=== PATIENT | female | born 1975 | race Caucasian/White ===

== ENCOUNTER → 2016-08-02 | Outpatient (CLI) | payer BC ==
[~2016-08-02] MED LIST: AGM875T PO; CLON0.5T60 PO; CLON1TAB36 PO; MNTL10T PO
--- NOTE | 2016-08-02 08:20 | Diagnostic Imaging Report ---
Bilateral diagnostic mammogram. INDICATION: Followup calcifications in the upper and posterior central aspect of the right breast. Comparison prior exams are reviewed including 07/28/2015, exam. CAD is utilized. FINDINGS: The breasts are extremely dense which would decrease mammographic sensitivity. There are unchanged calcifications in the upper aspect of the right breast posteriorly. These appear to be vascular with no adverse development. There is no definite underlying mass. No new suspicious cluster of calcifications seen. IMPRESSION: Stable calcifications in the posterior upper aspect of the right breast are likely vascular. Annual screening mammogram is recommended. ACR BI-RADS Category 2: Benign findings. Result letter will be mailed to the patient. Note: At least 10% of breast cancer is not imaged by mammography. Dictated by: Dictated on workstation # [id number]
== END ==
LOC: RAD 07:38
PROVIDERS: ATTEND Nurse Practitioner
DX: R92.8 Other abnormal and inconclusive findings on diagnostic imaging of breast (principal)
CPT/HCPCS: 77066

== ENCOUNTER → 2017-08-05 | Outpatient (CLI) | payer BC ==
--- NOTE | 2017-08-05 13:45 | Diagnostic Imaging Report ---
INDICATION: Screening. COMPARISON: 08/02/2016 back through 07/19/2013. TECHNIQUE: Screening digital mammography was performed bilaterally with a Computer Aided Detection (CAD) system. FINDINGS: There is moderately dense fibroglandular tissue bilaterally. There is a small nodular density in the superior aspect of the right breast again seen. This is unchanged. There is no other dominant mass, spiculated lesion, or suspicious calcification identified. The skin, nipples, and axillae are unremarkable. IMPRESSION: Benign findings. ACR BI-RADS Category 2: Benign findings. Result letter will be mailed to the patient. Note: At least 10% of breast cancer is not imaged by mammography. Dictated by: Dictated on workstation # [id number]
== END ==
LOC: RAD 10:15
PROVIDERS: ATTEND Nurse Practitioner
DX: Z12.31 Encounter for screening mammogram for malignant neoplasm of breast (principal)
CPT/HCPCS: 77067

== ENCOUNTER → 2018-08-28 | Outpatient (CLI) | payer BC ==
--- NOTE | 2018-08-31 08:07 | Diagnostic Imaging Report ---
INDICATION: Screening CAD is utilized. The current study was also evaluated with a Computer Aided Detection (CAD) system. Comparison made with prior examination from 08/05/2017, 08/02/2016 and 07/28/2015. 3-D tomosynthesis was performed and reviewed Findings: The fibroglandular tissue is heterogeneously dense bilaterally. There is no dominant mass, spiculated lesion or suspicious calcification identified. The skin, nipples and axilla are unremarkable. IMPRESSION: Category one negative ACR BI-RADS Category 1: Negative. Result letter will be mailed to the patient. Note: At least 10% of breast cancer is not imaged by mammography. Dictated by: Dictated on workstation # [id number]
== END ==
LOC: RAD 07:53
PROVIDERS: ATTEND Nurse Practitioner
DX: Z12.31 Encounter for screening mammogram for malignant neoplasm of breast (principal)
CPT/HCPCS: 77067

== ENCOUNTER → 2018-10-16 | Outpatient (CLI) | payer BC ==
--- NOTE | 2018-10-16 09:13 | Diagnostic Imaging Report ---
PROCEDURE: US Thyroid. TECHNIQUE: Multiple real-time grayscale images were obtained of the thyroid in various projections. INDICATION: Thyroid nodule. FINDINGS: The right thyroid lobe measured 5.0 x 2.3 x 2.0 cm. This is dominated by a predominantly cystic mass in its mid to lower third with nonvascularized thin internal septation, the lesion 2.8 x 1.8 x 2.0 cm and contained no soft tissue component. The left thyroid lobe is 3.8 x 0.9 x 1.0 cm and appeared nonfocal. IMPRESSION: Large partially septated right lobe thyroid cyst without vascularized or soft tissue mass. Negative left lobe. Dictated by: Dictated on workstation # [id number]
== END ==
LOC: RAD 08:20
PROVIDERS: ATTEND Nurse Practitioner
DX: E04.1 Nontoxic single thyroid nodule (principal)
CPT/HCPCS: 76536

== ENCOUNTER → 2019-10-26 | Outpatient (CLI) | payer BC ==
--- NOTE | 2019-10-26 11:48 | Diagnostic Imaging Report ---
INDICATION: Routine screening. Comparison is made to prior mammogram 08/28/2018 and 08/05/2017. 2-D and 3-D bilateral screening mammography was performed with CAD. Both breasts show marked parenchymal heterogeneity and increased density, limiting the sensitivity of mammography. A benign nodule in the upper right breast is stable. No dominant mass or malignant appearing microcalcifications are seen. Axillae are unremarkable. IMPRESSION: BI-RADS Category 2 No mammographic features suspicious for malignancy are identified. ACR BI-RADS Category 2: Benign findings. Result letter will be mailed to the patient. Note: At least 10% of breast cancer is not imaged by mammography. Dictated by: Dictated on workstation # [id number]
== END ==
LOC: RAD 09:15
PROVIDERS: ATTEND Family Medicine
DX: Z12.31 Encounter for screening mammogram for malignant neoplasm of breast (principal)
CPT/HCPCS: 77063; 77067

== ENCOUNTER → 2020-10-26 | Outpatient (CLI) | payer BC ==
--- NOTE | 2020-10-26 13:37 | Diagnostic Imaging Report ---
INDICATION: Routine screening. COMPARISON: 10/26/2019 and 08/28/2018. TECHNIQUE: 2D and 3D bilateral screening mammography was performed with CAD. FINDINGS: Both breasts are heterogeneously dense, limiting the sensitivity of mammography. The parenchymal pattern is stable. No mass or malignant appearing microcalcifications are seen. The axillae are unremarkable. IMPRESSION: No mammographic features suspicious for malignancy are identified. ACR BI-RADS Category 1: Negative. Result letter will be mailed to the patient. Note: At least 10% of breast cancer is not imaged by mammography. Dictated by: Dictated on workstation # [id number]
== END ==
LOC: RAD 11:15
PROVIDERS: ATTEND Nurse Practitioner
DX: Z12.31 Encounter for screening mammogram for malignant neoplasm of breast (principal)
CPT/HCPCS: 77063; 77067

== ENCOUNTER → 2021-10-29 | Outpatient (CLI) | payer BC ==
--- NOTE | 2021-10-29 10:00 | Diagnostic Imaging Report ---
INDICATION: Routine screening. Comparison is made with prior mammogram from 10/26/2020 and 10/26/2019. 2-D and 3-D bilateral screening mammography was performed with CAD. Both breasts are heterogeneously dense, limiting the sensitivity of mammography. The parenchymal pattern is stable. No mass or malignant-appearing microcalcifications are seen. Axillae are unremarkable. IMPRESSION: No mammographic features suspicious for malignancy are identified. ACR BI-RADS Category 1: Negative. Result letter will be mailed to the patient. Note: At least 10% of breast cancer is not imaged by mammography. BI-RADS Category 1 Dictated by: Dictated on workstation # [id number]
== END ==
LOC: RAD 08:30
PROVIDERS: ATTEND Nurse Practitioner
DX: Z12.31 Encounter for screening mammogram for malignant neoplasm of breast (principal)
CPT/HCPCS: 77063; 77067

== ENCOUNTER → 2022-11-04 | Outpatient (CLI) | payer BC ==
--- NOTE | 2022-11-04 11:57 | Diagnostic Imaging Report ---
INDICATION: Routine screening. COMPARISON: 10/29/2021 and 10/26/2020. TECHNIQUE: 2D and 3D bilateral screening mammography was performed with CAD. FINDINGS: Both breasts are heterogeneously dense, limiting the sensitivity of mammography. The parenchymal pattern is stable. No mass or malignant-appearing microcalcifications are seen. The axillae are unremarkable. IMPRESSION: No mammographic features suspicious for malignancy are identified. ACR BI-RADS Category 1: Negative. Result letter will be mailed to the patient. Note: At least 10% of breast cancer is not imaged by mammography. Dictated by: Dictated on workstation # [id number]
== END ==
LOC: RAD 07:48
PROVIDERS: ATTEND Surgery
DX: Z12.31 Encounter for screening mammogram for malignant neoplasm of breast (principal)
CPT/HCPCS: 77063; 77067

== ENCOUNTER → 2022-11-27 | Outpatient (CLI) | payer BC ==
--- NOTE | 2022-11-27 13:51 | Diagnostic Imaging Report ---
PROCEDURE: US Non-ob pelvis comp/trans. TECHNIQUE: Multiple realtime grayscale images were obtained of the pelvis in various projections endovaginally. Transabdominal imaging was also performed. INDICATION: Ovarian cyst. COMPARISON: None available. FINDINGS: The uterus measures 7.8 x 3.5 x 4.2 cm. The myometrium is normal in echogenicity without discrete mass. The endometrium measures up to 0.4 cm where visualized, and is normal in echogenicity. Neither ovary is visualized due to surrounding bowel gas. There is a suggestion of a mass in the left adnexa measuring 9.4 x 5.2 x 7.9 cm. IMPRESSION: 1. There is suggestion of a solid left adnexal mass measuring up to 9 cm. This is of unknown etiology, but could be an ovarian neoplasm. MRI of the pelvis without and with IV contrast per the female protocol is suggested to better evaluate this region. 2. Right ovary is not seen due to surrounding bowel gas, but there is no adnexal cyst. Dictated by: Dictated on workstation # [id number]
== END ==
LOC: RAD 09:39
PROVIDERS: ATTEND Nurse Practitioner
DX: N83.201 Unspecified ovarian cyst, right side (principal)
CPT/HCPCS: 76830; 76856

== ENCOUNTER → 2022-12-04 | Outpatient (CLI) | payer BC ==
[~2022-12-04] MED LIST changes: +GADOTERATE 0.5 MMOL/ML (CLARISCAN) 15 ML VIAL IV ONE
--- NOTE | 2022-12-04 16:38 | Diagnostic Imaging Report ---
EXAMINATION: MRI of the pelvis without and with contrast. COMPARISON: 11/27/2022 HISTORY: Left adnexal mass, followup. TECHNIQUE: Multiplanar, multisequence MRI of the pelvis was performed before and after the intravenous administration of IV contrast. FINDINGS: The uterus is retroverted and retroflexed measuring 4.8 x 2.9 x 8.0 cm. The endometrium is thin and homogeneous. There may be thickening of the junctional zone up to 1.9 cm along the posterior fundus. Normal low signal cervical stroma. The vagina is unremarkable although evaluation is limited secondary to nondistention. There is a heterogeneous, T2 hypointense, T1 isointense mass within the left adnexa which measures 8.5 x 6.6 x 8.0 cm. There are a few small foci of curvilinear T2 hyperintensity within the nodular lesion, likely representing areas of cyst degeneration or edema. The lesion does demonstrate heterogeneous enhancement. The right ovary is nonvisualized. The urinary bladder is normal. IMPRESSION: 1. Heterogeneous enhancing left adnexal mass with imaging characteristics favoring ovarian fibroma or fibrothecoma. 2. Findings suggestive of adenomyosis of the uterus. Dictated by: Dictated on workstation # [id number]
== END ==
LOC: RAD 12:10
PROVIDERS: ATTEND Nurse Practitioner
DX: R19.09 Other intra-abdominal and pelvic swelling, mass and lump (principal)
CPT/HCPCS: 72197

== ENCOUNTER → 2022-12-19 | Outpatient (CLI) | payer BC ==
[~2022-12-19] MED LIST changes: -GADOTERATE 0.5 MMOL/ML (CLARISCAN) 15 ML VIAL IV ONE
--- NOTE | 2022-12-19 15:07 | Diagnostic Imaging Report ---
EXAMINATION: CT abdomen and pelvis without contrast. TECHNIQUE: Multiple contiguous axial images were obtained through the abdomen and pelvis without the use of intravenous contrast. All CT scans use one or more of the following dose optimizing techniques: automated exposure control, MA and/or KvP adjustment based on patient size and exam type or iterative reconstruction. HISTORY: Pelvic mass follow-up. COMPARISON: 12/04/2022. FINDINGS: Lung bases: The lung bases are clear. Solid organs: The liver is normal. The gallbladder is normal. There is no biliary ductal dilation. Pancreas is normal. Spleen is normal. Adrenal glands are normal. The kidneys are normal without visualized calculus or hydronephrosis. Bowel: The stomach and small bowel are normal without obstruction. The colon is normal. The appendix is normal. Peritoneum: There is no intraperitoneal free fluid or free air. No suspicious lymphadenopathy. Vasculature: Normal without aneurysm. Musculoskeletal: No suspicious osseous lesion or compression fracture. Pelvis: Limited evaluation of the left adnexal mass without IV contrast. Lesion was better evaluated on recent MRI on 12/04/2022. Lesion measures approximately 8.3 cm in maximum size. The uterus is unremarkable. The urinary bladder is normal. IMPRESSION: 1. Overall, stable size of the left adnexal mass compared to recent MRI of 12/04/2022. Evaluation is limited on a noncontrast CT. Dictated by: Dictated on workstation # [id number]
== END ==
LOC: RAD 14:04
PROVIDERS: ATTEND Obstetrics & Gynecology
DX: R19.00 Intra-abdominal and pelvic swelling, mass and lump, unspecified site (principal)
CPT/HCPCS: 74176

== ENCOUNTER 2022-12-26 06:58 | Outpatient (CLI) | payer BC ==
[~2022-12-26] VITALS: Ht 162.6 cm; Wt 50.8 kg
[2022-12-26] MEDS ORDERED: CLN.2T PO (10:13)
[2022-12-26] MEDS ORDERED: DIPH25TA29 PO (10:13)
== END 2022-12-26 10:19 | disposition home or self-care (01) ==
LOC: PREOP 06:58
PROVIDERS: ATTEND Obstetrics & Gynecology
DX: Z01.818 Encounter for other preprocedural examination (principal)

== ENCOUNTER 2022-12-31 07:41 | Day surgery (SDC) | payer BC ==
[2022-12-31] VITALS (8 sets, daily range): BP systolic 105–139; BP diastolic 72–104
[~2022-12-31] VITALS: Ht 162.6 cm; Wt 50.8 kg
[~2022-12-31 07:41] MED LIST changes: +CLN.2T PO; +DIPH25TA29 PO
[2022-12-31] MEDS ORDERED: ceFAZolin INJECTION 1,000 MG in NS (IVPB) 50 ML 50 ML IV ONE (08:00)
[2022-12-31] MEDS ORDERED: metroNIDAZOLE 500MG/100ML IVPB 100 ML IV ONE (08:00)
[2022-12-31 08:22] LABS: BASOPHILS # (AUTO) 0.1 10^3/uL (0.0-0.1); BASOPHILS % (AUTO) 1 % (0-10); EOSINOPHILS # (AUTO) 0.1 10^3/uL (0.0-0.3); EOSINOPHILS % (AUTO) 2 % (0-10); HEMATOCRIT 49 % (35-52); HEMOGLOBIN 16.8 g/dL (11.5-16.0); LYMPHOCYTES # (AUTO) 2.8 10^3/uL (1.0-4.0); LYMPHOCYTES % (AUTO) 43 % (12-44); MEAN CORPUSCULAR HEMOGLOBIN 30 pg (25-34); MEAN CORPUSCULAR HGB CONC 34 g/dL (32-36); MEAN CORPUSCULAR VOLUME 88 fL (80-99); MEAN PLATELET VOLUME 9.7 fL (9.0-12.2); MONOCYTES # (AUTO) 0.6 10^3/uL (0.0-1.0); MONOCYTES % (AUTO) 10 % (0-12); NEUTROPHILS % (AUTO) 45 % (42-75); PLATELET COUNT 287 10^3/uL (130-400); WHITE BLOOD COUNT 6.7 10^3/uL (4.3-11.0)
[2022-12-31] MEDS: LACTATED RINGERS 1,000 ML 1,000 ML IV PRN ×2 (08:23→09:00)
[2022-12-31] MEDS ORDERED: BUPIVACAINE 0.25% 30 ML VIAL ONE (10:48)
[2022-12-31] MEDS ORDERED: MIDAZOLAM INJ 2 MG/2 ML VIAL ONE ×2 (10:54→10:57)
[2022-12-31] MEDS ORDERED: ONDANSETRON INJECTION 4 MG/2 ML (SDV) ONE (10:54)
[2022-12-31] MEDS ORDERED: proPOfol INJECTION 200 MG/20 ML VIAL IV ONE (10:54)
[2022-12-31] MEDS ORDERED: dexAMETHasone INJ 10 MG/ML 1 ML VIAL ONE (10:54)
[2022-12-31] MEDS ORDERED: fentaNYL INJECTION 100 MCG/2 ML VIAL ONE (10:54)
[2022-12-31] MEDS ORDERED: LIDOCAINE PF 2% 5 ML VIAL ONE (10:54)
[2022-12-31] MEDS ORDERED: SEVOFLURANE (ULTANE) 15 ML INHAL SOLN ONE ×2 (10:54→12:43)
[2022-12-31] MEDS ORDERED: MIDAZOLAM INJ 2 MG/2 ML VIAL IV ONE (11:00)
--- NOTE | 2022-12-31 11:33 | Progress Note-Pre Operative ---
Pre-Operative Progress Note Date of Available H&P: Dec 31, 2022 Date H&P Reviewed: Dec 31, 2022 Time H&P Reviewed: 10:30 History & Physical: H&P Reviewed, Patient Examed, No changes noted Pre-Operative Diagnosis: Pelvic mass RITESH BARRAGAN DO Dec 31, 2022 11:33
--- NOTE | 2022-12-31 11:36 | Discharge Inst-Women's Service ---
Discharge Inst-Women's Serv Depart Medication/Instructions New, Converted or Re-Newed RX: Transmitted to Pharmacy Problems Reviewed?: Yes Consults/Follow Up Additional Follow Up: Yes Orders/Referrals Dr. Cuba in 7-10 days and in 8 weeks Activity Activity: Activity as Tolerated Driving Instructions: No Driving for 1 Week NO SMOKING: NO SMOKING Nothing Inside Vagina: No Douching, No [place], No Tampons Diet Discharge Diet: No Restrictions Symptoms to Report to : Bleeding Excessive, Pain Increased, Fever Over 101 Degrees F, Vaginal Bleeding Increase, Questions/Concerns For Any Problems or Questions: Contact Your Physician Skin/Wound Care Infection Signs and Symptoms: Increased Redness, Foul Odor of Wound, Increased Drainage, Skin Itchy or Has a Rash, Increased Swelling, Temperature Above 101 F Operative Area Clean and Dry: Keep Incision Clean/Dry Stitches/Zeferino/Dermabond: Dermabond, Care of Stitches Bathing Instructions: RITESH Ugalde DO Dec 31, 2022 11:36
[2022-12-31] MEDS ORDERED: IBUP-844 PO (11:37)
[2022-12-31] MEDS ORDERED: DOCU100C37 PO (11:37)
[2022-12-31] MEDS ORDERED: HYDR-34 PO (11:37)
[2022-12-31] MEDS ORDERED: SIME80TA16 PO (11:37)
[2022-12-31] MEDS ORDERED: KETOROLAC INJ 30 MG/ML VIAL IVP PRN (11:45)
[2022-12-31] MEDS ORDERED: HYDROcodone/ACETAMINOPHEN 7.5 MG/325 MG TABLET PO PRN (11:45)
[2022-12-31] MEDS ORDERED: BENZOCAINE LOZENGES 1 EACH MM PRN (11:45)
[2022-12-31] MEDS ORDERED: IBUPROFEN 600 MG TABLET PO PRN (11:45)
[2022-12-31] MEDS ORDERED: LACTATED RINGERS 1,000 ML 1,000 ML IV SCH (11:45)
[2022-12-31] MEDS ORDERED: SIMETHICONE 80 MG CHEWABLE TABLET PO PRN (11:45)
[2022-12-31] MEDS ORDERED: ANTACID SUSPENSION 30 ML UDC PO PRN (11:45)
[2022-12-31] MEDS ORDERED: DOCUSATE SODIUM 100 MG CAPSULE PO PRN (11:45)
[2022-12-31] MEDS ORDERED: ZOLPIDEM 5 MG (AMBIEN) TAB PO PRN (11:45)
[2022-12-31] MEDS ORDERED: ONDANSETRON INJECTION 4 MG/2 ML (SDV) IV PRN (11:45)
[2022-12-31] MEDS ORDERED: ROCURONIUM 50 MG/5 ML VIAL IV ONE (12:41)
[2022-12-31] MEDS ORDERED: KETOROLAC INJ 30 MG/ML VIAL ONE (12:44)
[2022-12-31] MEDS ORDERED: SUGAMMADEX 500 MG/5 ML VIAL (BRIDION) IV ONE (12:45)
[2022-12-31] MEDS ORDERED: HYDROmorphone INJECTION 2 MG/ML VIAL IV ONE ×2 (13:15)
[2022-12-31] MEDS ORDERED: BUPIVACAINE 0.25% 30 ML VIAL INJ ONE (13:15)
[2022-12-31] MEDS ORDERED: ONDANSETRON INJECTION 4 MG/2 ML (SDV) IVP PRN (13:15)
[2022-12-31] MEDS: ONDANSETRON INJECTION 4 MG/2 ML (SDV) IVP PRN ×2 (13:24→13:42)
[2022-12-31] MEDS ORDERED: HYDROmorphone INJECTION 2 MG/ML VIAL ONE (13:25)
--- NOTE | 2022-12-31 20:30 | OPERATIVE REPORT ---
DATE OF SERVICE: 12/31/2022 PREOPERATIVE DIAGNOSIS: A 47-year-old female with multicystic appearing pelvic mass on ultrasound and CT. POSTOPERATIVE DIAGNOSIS: A 47-year-old female with multicystic appearing pelvic mass on ultrasound and CT. PROCEDURE: Robotic-assisted total laparoscopic hysterectomy, bilateral salpingo-oophorectomy. SURGEON: Zen Cuba DO SOLDERER TORCH: Kristal Peter DNP, was necessary for manipulation and retraction throughout the procedure. ANESTHESIA: General endotracheal. ESTIMATED BLOOD LOSS: Minimal. URINE OUTPUT: A 300 mL clear at the end of procedure. FLUIDS: 1200 mL lactated Ringer's solution. FINDINGS: Multicystic nodular appearing left ovary approximately 8 x 9 cm. Grossly normal-appearing right ovary and fallopian tube. Grossly normal-appearing uterus. SPECIMEN SENT: Uterus, bilateral fallopian tubes and ovaries, including left ovarian mass. INDICATIONS FOR PROCEDURE: This 47-year-old female is the patient who was consulted to my office from Yes[facility] Lincoln nurse practitioner locally. We had identified a pelvic mass on examination. This was followed by an ultrasound, which revealed a multicystic appearing left adnexal mass that had no free fluid. CT showed no lymphadenopathy and tumor markers were all negative. I discussed with the patient the potential of malignancy; however, this was not likely due to multiple nonmalignant appearing findings on imaging and lab values. I discussed with the patient removal of the ovary. We discussed doing this with a laparotomy versus a hysterectomy and the patient has passed her childbearing and wishes to proceed with removal of all of her pelvic organs due to concerns of this being a cancer and potential neoplasms and malignancy. Risk of procedure discussed with the patient in detail including risk of bleeding, infection, damage to surrounding structures including but not limited to bowel, bladder, ureter, kidneys, possible need for operation, postoperative complications that may occur, recovery timeframe, risk from anesthesia and even . After everything was discussed with the patient in detail, a consent was obtained, the patient was taken to the operating room. OPERATIVE DESCRIPTION IN DETAIL: Once in the operating room, anesthesia was administered. She was placed in dorsal lithotomy position, prepped and draped in normal sterile fashion. A timeout was performed. A Sagastume catheter was placed using sterile technique. A weighted speculum inserted to the patient's vagina. Right angle retractor was utilized for cervix which was grasped at 12 o'clock position using a 0 Vicryl suture of the anterior lip of the cervix. I then gently sound the uterine cavity, depth was found to be 8 cm. I placed an 8 cm PRICILLA uterine manipulator tip and a 3.5 cm colpotomy ring into the uterus with the colpotomy ring advanced around the vaginal fornix. Excellent manipulation is noted after doing this. I then performed a change of gloves, turned my attention to the abdomen where subcostally at the midclavicular line, I introduced the Veress needle through the incision [ ] through the skin until the trocar placement was confirmed using saline drop test. An opening pressure of 5 mmHg was noted. I proceeded with insufflation using CO2 gas to maximum pressure of 15 mmHg, at which point I make an infraumbilical trocar incision that is 8 mm with a knife and direct a blunt laparoscopic da Meli camera trocar through the incision until intraperitoneal placement was confirmed using the laparoscope. There was no evidence of damage upon my entry site. A brief scan of the upper abdominal anatomy appears to be grossly normal. I removed the Veress needle under direct visualization of laparoscope. I then placed 2 lateral trocars. These were both 8 cm trocars were approximately 8 cm lateral to my infraumbilical trocar. Once both of these trocars were in place, I bring in the da Meli robot and docked in appropriate fashion, placing the SynchroSeal device in the left hand and monopolar danica in the right hand. I performed the following dissection bilaterally, starting at the infundibulopelvic ligament. I sealed and transected this using the SynchroSeal device. I then grasped the round ligament which I sealed and transected using the SynchroSeal device and then I am able to separate the anterior and posterior leaves of the broad ligament. Anterior leaflet was taken around the anterior vaginal fornix. The posterior leaf was taken around the posterior vaginal fornix. This allows me to skeletonize the uterine vessels laterally, which I sealed and transected using the SynchroSeal device. I then created a colpotomy at 12 o'clock position using monopolar danica and take this circumferentially around the vaginal fornix amputating the cervix away from the vagina. I then removed the uterus, right ovary and fallopian tube through the vaginal cuff. The left ovary is from the remainder of the specimen as not to rupture it. I placed it within the Endopouch bag, which was introduced into the vagina. Once this was [ ] in the bag, it is removed through the vagina without rupturing it intact. I then closed the vaginal cuff using 2-0 V-Loc in a running fashion, after which there was no active bleeding noted from any my dissection planes. I undocked da Meli robot and proceeded with remainder of the case laparoscopically. I copiously irrigated the pelvis using normal saline. Once again, there was no active bleeding noted from any of my dissection planes. I placed Surgiflo hemostatic agent over all my planes of dissection. I had the patient taken out of steep Trendelenburg where I am able to visualize the lateral trocars under direct visualization of laparoscope. They were removed. The infraumbilical trocars left in place to release insufflation and to introduce 10 mL of 0.25% Marcaine in the peritoneal cavity for postoperative pain management, then removed this trocar as well. Skin reapproximated using 4-0 Monocryl and interrupted subcuticular stitches. Dermabond was applied to incision. Bandage was placed over the incisions as well. Sagastume catheter was left in place. A 500 mg of Flagyl and 2 grams of Ancef were given preoperatively for infection prophylaxis. The patient tolerated the procedure well and was taken to recovery area in stable condition. Lap and sponge count was correct at the end of the procedure. Instrument counts correct as well. Job ID: [id number] DocumentID: [id number] Dictated Date: 12/31/2022 13:57:17 Scuba Diver Date: 12/31/2022 20:28:00 Dictated By: ZEN CUBA DO
--- NOTE | 2023-01-01 12:44 | Anesthesia-General Post-Op ---
General Patient Condition Mental Status/LOC: Same as Preop Cardiovascular: Satisfactory Nausea/Vomiting: Absent Respiratory: Satisfactory Pain: Controlled Complications: Absent Post Op Complications Complications None Follow Up Care/Instructions Patient Instructions None needed. Anesthesia/Patient Condition Patient Condition Patient is doing well, no complaints, stable vital signs, no apparent adverse anesthesia problems. No complications reported per nursing. KSENIA MORRELL CRNA Jan 01, 2023 12:44
== END 2022-12-31 19:15 | disposition home or self-care (01) ==
LOC: SDC 07:41 → WS 14:10 → SDC 19:15
PROVIDERS: ATTEND Obstetrics & Gynecology
DX: N80.00 Endometriosis of the uterus, unspecified (principal); N80.101 Endometriosis of right ovary, unspecified depth; D25.9 Leiomyoma of uterus, unspecified; N94.89 Other specified conditions associated with female genital organs and menstrual cycle; N83.292 Other ovarian cyst, left side; N83.291 Other ovarian cyst, right side; N73.6 Female pelvic peritoneal adhesions (postinfective)
CPT/HCPCS: 36415; 84703; 85025; 86850; 86900; 86901; 87081